=== PATIENT | male | born 1955 | race Caucasian/White ===

== ENCOUNTER 2017-06-24 19:54 | Emergency (ER) | payer BC, OTHER ==
[2017-06-24] MEDS ORDERED: Sodium Chloride 0.9% 1,000 ML IV ONE (19:56)
[2017-06-24] MEDS ORDERED: Sodium Chloride 0.9% 5 ML Syringe FLUSH PRN (19:56)
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
[2017-06-24] MEDS ORDERED: fentaNYL 250 MCG/5 ML SDV IVPUSH ONE (20:36)
[2017-06-24] MEDS ORDERED: fentaNYL 100 MCG/2 ML SDV IV ONE (20:36)
[2017-06-24] MEDS ORDERED: fentaNYL 100 MCG/2 ML SDV ONE (20:36)
[2017-06-24] MEDS ORDERED: Sodium Chloride 0.9% 1,000 ML ONE (21:56)
[2017-06-25] MEDS ORDERED: fentaNYL 250 MCG/5 ML SDV IVPUSH ONE ×2
== END 2017-06-24 21:07 ==
LOC: KA.ED 19:54 → MERGE 19:54 → KA.ED 21:07
DX: S29.9XXA Unspecified injury of thorax, initial encounter (principal); M25.511 Pain in right shoulder; V29.9XXA Motorcycle rider (driver) (passenger) injured in unspecified traffic accident, initial encounter
CPT/HCPCS: 70450; 71250; 72125; 74176; 74178; 99285; J3010; J7030

== ENCOUNTER 2024-01-03 07:00 | Day surgery (SDC) | payer MEDICARE, BC ==
[~2024-01-03 07:00] MED LIST: Sodium Chloride 0.9% 10 ML Syringe FLUSH PRN
[2024-01-03] MEDS ORDERED: Propofol 200 MG/20 ML SDV IV ONE (07:01)
[2024-01-03] MEDS: Sodium Chloride 0.9% 1,000 ML IV SCH (07:14)
[2024-01-03] MEDS ORDERED: Lidocaine 2% 100 MG/5 ML Syringe ONE (07:54)
[2024-01-03] MEDS ORDERED: Propofol 200 MG/20 ML SDV ONE ×2 (07:54→08:40)
[2024-01-03] MEDS ORDERED: Glycopyrrolate 0.2 MG/ML SDV ONE (07:54)
[2024-01-03] MEDS ORDERED: Midazolam 1 MG/ML 2 ML SDV ONE (07:54)
== END 2024-01-03 11:29 | disposition home or self-care (01) ==
LOC: KA.SDS 07:00
PROVIDERS: ATTEND Family Medicine
DX: D12.6 Benign neoplasm of colon, unspecified (principal); K57.30 Diverticulosis of large intestine without perforation or abscess without bleeding; K44.9 Diaphragmatic hernia without obstruction or gangrene
CPT/HCPCS: 00813; 82947; J1596; J2250; J2704; J3490; J7030